=== PATIENT | male | born 1975 | race Caucasian/White ===

== ENCOUNTER 2019-10-13 15:02 | Inpatient (IN) | payer BC, OTHER ==
[~2019-10-13] VITALS: Ht 190.5 cm; Wt 79.1 kg
[2019-10-13] MEDS ORDERED: SODIUM CHLORIDE FLUSH 10ML SYR IVF ONE (15:30)
--- NOTE | 2019-10-13 15:38 | NUR ---
BRADDISHER: PT TO LAB OFFICE FOR BLOOD DRAW, THEN TO GO TO ROOM.
--- NOTE | 2019-10-13 15:47 | NUR ---
HEAD LIBRARIAN: PT TO ROOM, GAIT STEADY.
[2019-10-13 16:12] LABS: ALANINE AMINOTRANSFERASE 7 U/L (12-78); ALBUMIN 2.6 g/dL (3.4-5.0); ANION GAP 7 mmol/L (5-15); CALCIUM 8.3 mg/dL (8.5-10.1); CHLORIDE 105 mmol/L (98-107); CREATININE 1.03 mg/dL (0.7-1.3)
[2019-10-13 16:18] LABS: ALKALINE PHOSPHATASE 83 U/L (45-117); BILIRUBIN,TOTAL 0.3 mg/dL (0.2-1.0); TOTAL PROTEIN 7.6 g/dL (6.4-8.2)
[2019-10-13 16:39] LABS: BASOPHILS # (AUTO) 0.02 x10^3/uL (0-0.1); BASOPHILS % (AUTO) 0 % (0-1); EOSINOPHILS # (AUTO) 0.08 x10^3/uL (0-0.4); EOSINOPHILS % (AUTO) 1 % (1-7); LYMPHOCYTES # (AUTO) 2.44 x10^3/uL (1-3.4); LYMPHOCYTES % (AUTO) 38 % (22-44); MD MORPH REVIEW ONLY; MEAN CORPUSCULAR HEMOGLOBIN 15.9 pg (27.5-34.5); MEAN CORPUSCULAR VOLUME 54.1 fL (81-97); MEAN PLATELET VOLUME 7.9 fL (7.4-10.4); MONOCYTES # (AUTO) 0.46 x10^3/uL (0.2-0.8); MONOCYTES % (AUTO) 7 % (2-9); NEUTROPHILS # (AUTO) 3.47 x10^3/uL (1.8-6.8); NEUTROPHILS % (AUTO) 54 % (42-75); PLATELET COUNT 429 x10^3/uL (130-400)
[2019-10-13 16:40] LABS: MEAN CORPUSCULAR HGB CONC 29.3 g/dL (33.2-36.2)
[2019-10-13 16:48] LABS: ANISOCYTOSIS 2+; MICROCYTOSIS 2+
[2019-10-13 16:50] LABS: HYPOCHROMIA 1+; OVALOCYTES 1+; TARGET CELLS 1+; TEAR DROPS 1+
[2019-10-13 16:52] LABS: <PLATELET ESTIMATE> INCREASED; <PLT MORPHOLOGY> NORMAL PLT MORPH
--- NOTE | 2019-10-13 16:52 | NUR ---
SEVERAL ATTEMPTS MADE FOR PIV,UNSUCCESSFUL. US GUIDED IV PLACED BY LISET FAIR, REDRAW OF PURPLE TOP COLLECTED/SENT TO LAB. CRITICAL H/H DOCUMENTED AND REPORTED TO PROVIDER. SED RATE CLOTTED. PT UPDATED ON POC. URINE CUP AT BS. VSS/UPDATED IN COMPUTER.
--- NOTE | 2019-10-13 16:52 | NUR ---
TASK RN: IV ESTABLISHED BY US. PURPLE CAP DRAWN AND SENT TO LAB
[2019-10-13] MEDS ORDERED: PHARMACOKINETIC CONSULTATION MC ONE ×2 (17:00→18:30)
[2019-10-13] MEDS ORDERED: VANCOMYCIN PER PHARMACY MC ONE (17:00)
[2019-10-13] MEDS ORDERED: VANCOMYCIN 1,600 MG in SODIUM CHLORIDE 0.9% 250 ML IV ONE (17:00)
--- NOTE | 2019-10-13 17:00 | NUR ---
MU BONILLA AND ADMITTING MD AT .
[2019-10-13] MEDS ORDERED: METH40TA3 PO (17:20)
--- NOTE | 2019-10-13 17:24 | NUR ---
ATTEMPT TO CALL REPORT, RN NOT AVAILABLE WILL CALL BACK.
[2019-10-13] MEDS ORDERED: ACETAMINOPHEN 325 MG TABLET PO PRN (17:30)
[2019-10-13] MEDS ORDERED: POLYETHYLENE GLYCOL 17 GM PACKET PO PRN (17:30)
[2019-10-13] MEDS ORDERED: ONDANSETRON ODT 4 MG PO PRN (17:30)
[2019-10-13] MEDS ORDERED: VANCOMYCIN PER PHARMACY MC PRN (17:30)
[2019-10-13] MEDS ORDERED: ONDANSETRON 2MG/ML, 2ML IVPush PRN (17:30)
[2019-10-13 18:12] LABS: HCT (SEDRATE) 22.8 % (39.2-51.8)
[2019-10-13] MEDS ORDERED: PHARMACOKINETIC MONITORING MC PRN (18:30)
[2019-10-13] MEDS: METHADONE 5 MG TABLET PO SCH ×2 (18:43→23:26)
[2019-10-13] MEDS: NICOTINE 14MG/24 HR PATCH.TD24 TD SCH (18:44)
[2019-10-13] MEDS: ENOXAPARIN 40 MG/0.4 ML SQ SCH (18:44)
[2019-10-13 19:01] VITALS: BP 124/70
[2019-10-13] MEDS ORDERED: MORPHINE SULFATE 4 MG/ML, 1ML IVPush PRN (20:00)
[2019-10-13 21:54] VITALS: BP 121/64
[2019-10-13 22:15] VITALS: BP 117/67
[2019-10-13 22:30] VITALS: BP 117/66
[2019-10-13 23:27] VITALS: BP 120/71
[2019-10-14 00:58] VITALS: BP 121/67
[2019-10-14 02:07] VITALS: BP 131/72
[2019-10-14 02:09] VITALS: BP 131/72
[2019-10-14] MEDS: VANCOMYCIN 1,500 MG in SODIUM CHLORIDE 0.9% 250 ML IV SCH ×2 (05:15→17:53)
[2019-10-14] MEDS: OMEPRAZOLE 20 MG CAPSULE.DR PO SCH (05:15)
[2019-10-14] MEDS: METHADONE 5 MG TABLET PO SCH ×4 (05:15→22:43)
[2019-10-14 05:55] LABS: ALBUMIN 2.4 g/dL (3.4-5.0); ANION GAP 5 mmol/L (5-15); CALCIUM 8.2 mg/dL (8.5-10.1); CHLORIDE 105 mmol/L (98-107)
[2019-10-14 05:59] LABS: % IRON SATURATION 8 % (20-55); ALANINE AMINOTRANSFERASE 11 U/L (12-78); ALKALINE PHOSPHATASE 75 U/L (45-117); BILIRUBIN,TOTAL 0.8 mg/dL (0.2-1.0); IRON LEVEL 23 mcg/dL (65-175); TOTAL IRON BINDING CAPACITY 301 mcg/dL (250-450); TOTAL PROTEIN 7.1 g/dL (6.4-8.2)
[2019-10-14 06:00] LABS: MEAN CORPUSCULAR HEMOGLOBIN 16.7 pg (27.5-34.5); MEAN CORPUSCULAR VOLUME 56.5 fL (81-97); MEAN PLATELET VOLUME 8.1 fL (7.4-10.4); PLATELET COUNT 415 x10^3/uL (130-400); RED BLOOD COUNT 4.56 x10^6/uL (4.38-5.82); RED CELL DISTRIBUTION WIDTH 20.8 % (9.4-14.8)
[2019-10-14 06:45] LABS: MD YES
[2019-10-14 06:46] LABS: MEAN CORPUSCULAR HGB CONC 29.5 g/dL (33.2-36.2)
[2019-10-14 06:48] LABS: ANISOCYTOSIS 2+; BASOS#(MANUAL) 0.05 x10^3/uL (0-0.1); BASOS% (MANUAL) 1 % (0-1); EOS#(MANUAL) 0.26 x10^3/uL (0.0-0.4); EOS% (MANUAL) 5 % (1-7); HYPOCHROMIA 1+; LYMPHS% (MANUAL) 48 % (22-44); MICROCYTOSIS 2+; MONOS#(MANUAL) 0.16 x10^3/uL (0.3-2.7); MONOS% (MANUAL) 3 % (2-9); SEG#(MANUAL) 2.24 x10^3/uL (1.8-6.8); SEGS% (MANUAL) 43 % (42-75)
[2019-10-14 06:49] LABS: <PLATELET ESTIMATE> INCREASED; <PLT MORPHOLOGY> NORMAL PLT MORPH; OVALOCYTES 1+; TARGET CELLS 1+; TEAR DROPS 1+
[2019-10-14 08:22] VITALS: BP 119/73
[2019-10-14] MEDS: SENNA/DOCUSATE TABLET PO SCH (09:34)
[2019-10-14] MEDS: IRON SUCROSE COMPLEX 100MG/5ML IV SCH (11:45)
[2019-10-14 12:57] LABS: AMPHETAMINE SCREEN, URINE Positive (Negative); BARBITURATE SCREEN, URINE Negative (Negative); BENZODIAZEPINE SCREEN, URINE Positive (Negative); CANNABINOID SCREEN, URINE Negative (Negative); COCAINE SCREEN, URINE Negative (Negative); METHADONE SCREEN, URINE Positive (Negative); OPIATE SCREEN, URINE Positive (Negative)
[2019-10-14] MEDS ORDERED: GADOTERATE 10 MMOL/20 ML SYR ONE (13:12)
[2019-10-14 14:56] VITALS: BP 134/84
[2019-10-14 16:47] LABS: CULTURE INDICATED? NO; MICROSCOPIC NOT IND
[2019-10-14] MEDS: NICOTINE 14MG/24 HR PATCH.TD24 TD SCH (17:30)
[2019-10-14] MEDS: ENOXAPARIN 40 MG/0.4 ML SQ SCH (17:54)
[2019-10-14 19:39] VITALS: BP 135/81
[2019-10-14] MEDS ORDERED: METHADONE 10 MG TABLET ONE (22:36)
[2019-10-15 01:13] VITALS: BP 119/78
[2019-10-15 05:05] LABS: ALANINE AMINOTRANSFERASE 9 U/L (12-78); ALBUMIN 2.4 g/dL (3.4-5.0); ANION GAP 7 mmol/L (5-15); CALCIUM 8.2 mg/dL (8.5-10.1); CHLORIDE 106 mmol/L (98-107); CREATININE 0.85 mg/dL (0.7-1.3)
[2019-10-15 05:07] LABS: ALKALINE PHOSPHATASE 76 U/L (45-117); BILIRUBIN,TOTAL 0.3 mg/dL (0.2-1.0); TOTAL PROTEIN 6.9 g/dL (6.4-8.2); VANCOMYCIN,TROUGH 15.4 mcg/mL (5.0-10.0)
[2019-10-15] MEDS: METHADONE 5 MG TABLET PO SCH ×3 (05:19→18:28)
[2019-10-15] MEDS: OMEPRAZOLE 20 MG CAPSULE.DR PO SCH (05:19)
[2019-10-15] MEDS: VANCOMYCIN 1,500 MG in SODIUM CHLORIDE 0.9% 250 ML IV SCH ×2 (05:20→18:00)
[2019-10-15] MEDS: SENNA/DOCUSATE TABLET PO SCH (08:16)
[2019-10-15] MEDS: IRON SUCROSE COMPLEX 100MG/5ML IV SCH (08:17)
[2019-10-15 08:34] VITALS: BP 130/76
[2019-10-15 09:38] LABS: MEAN CORPUSCULAR HEMOGLOBIN 16.8 pg (27.5-34.5); MEAN CORPUSCULAR VOLUME 57.2 fL (81-97); MEAN PLATELET VOLUME 7.8 fL (7.4-10.4); PLATELET COUNT 448 x10^3/uL (130-400); RED BLOOD COUNT 4.99 x10^6/uL (4.38-5.82); RED CELL DISTRIBUTION WIDTH 21.8 % (9.4-14.8)
[2019-10-15 10:00] LABS: BASOPHILS # (AUTO) 0.06 x10^3/uL (0-0.1); BASOPHILS % (AUTO) 1 % (0-1); EOSINOPHILS # (AUTO) 0.19 x10^3/uL (0-0.4); EOSINOPHILS % (AUTO) 3 % (1-7); LYMPHOCYTES # (AUTO) 2.27 x10^3/uL (1-3.4); LYMPHOCYTES % (AUTO) 36 % (22-44); MD SCAN; MEAN CORPUSCULAR HGB CONC 29.3 g/dL (33.2-36.2); MONOCYTES # (AUTO) 0.39 x10^3/uL (0.2-0.8); MONOCYTES % (AUTO) 6 % (2-9); NEUTROPHILS # (AUTO) 3.48 x10^3/uL (1.8-6.8); NEUTROPHILS % (AUTO) 54 % (42-75)
[2019-10-15] MEDS: AMPICILLIN/SULBACTAM 3 GM in SODIUM CHLORIDE 0.9% 100 ML IV SCH ×2 (11:43→18:00)
[2019-10-15 13:37] VITALS: BP 113/66
[2019-10-15] MEDS: NICOTINE 14MG/24 HR PATCH.TD24 TD SCH (17:30)
[2019-10-15] MEDS: ENOXAPARIN 40 MG/0.4 ML SQ SCH (17:30)
[2019-10-15 21:39] VITALS: BP 103/71
[2019-10-16] MEDS: AMPICILLIN/SULBACTAM 3 GM in SODIUM CHLORIDE 0.9% 100 ML IV SCH ×5 (00:13→23:28)
[2019-10-16] MEDS: METHADONE 5 MG TABLET PO SCH ×5 (00:13→23:28)
[2019-10-16 03:45] VITALS: BP 118/64
[2019-10-16 04:40] LABS: MEAN CORPUSCULAR HEMOGLOBIN 16.8 pg (27.5-34.5); MEAN CORPUSCULAR VOLUME 56.7 fL (81-97); MEAN PLATELET VOLUME 7.6 fL (7.4-10.4); PLATELET COUNT 386 x10^3/uL (130-400); RED BLOOD COUNT 3.96 x10^6/uL (4.38-5.82); RED CELL DISTRIBUTION WIDTH 20.5 % (9.4-14.8)
[2019-10-16 04:41] LABS: MEAN CORPUSCULAR HGB CONC 29.7 g/dL (33.2-36.2)
[2019-10-16 04:52] LABS: ANION GAP 3 mmol/L (5-15); CALCIUM 8.2 mg/dL (8.5-10.1); CHLORIDE 104 mmol/L (98-107)
[2019-10-16 04:58] LABS: BASOPHILS % (AUTO) 0 % (0-1); EOSINOPHILS # (AUTO) 0.25 x10^3/uL (0-0.4); EOSINOPHILS % (AUTO) 4 % (1-7); LYMPHOCYTES # (AUTO) 2.06 x10^3/uL (1-3.4); LYMPHOCYTES % (AUTO) 36 % (22-44); MD SCAN; MONOCYTES # (AUTO) 0.37 x10^3/uL (0.2-0.8); MONOCYTES % (AUTO) 6 % (2-9); NEUTROPHILS # (AUTO) 3.09 x10^3/uL (1.8-6.8); NEUTROPHILS % (AUTO) 54 % (42-75)
[2019-10-16] MEDS: VANCOMYCIN 1,500 MG in SODIUM CHLORIDE 0.9% 250 ML IV SCH ×2 (06:34→17:53)
[2019-10-16] MEDS: OMEPRAZOLE 20 MG CAPSULE.DR PO SCH (06:34)
[2019-10-16 07:47] VITALS: BP 110/69
[2019-10-16] MEDS: SENNA/DOCUSATE TABLET PO SCH (08:55)
[2019-10-16] MEDS: IRON SUCROSE COMPLEX 100MG/5ML IV SCH (08:56)
[2019-10-16 12:39] VITALS: BP 115/70
[2019-10-16] MEDS ORDERED: HYDROcodone/APAP 5/325 TABLET PO PRN (14:00)
[2019-10-16] MEDS: NICOTINE 14MG/24 HR PATCH.TD24 TD SCH (17:30)
[2019-10-16] MEDS: ENOXAPARIN 40 MG/0.4 ML SQ SCH (17:53)
[2019-10-16 21:00] LABS: AMPHETAMINE SCREEN, URINE Positive (Negative); BARBITURATE SCREEN, URINE Negative (Negative); BENZODIAZEPINE SCREEN, URINE Negative (Negative); CANNABINOID SCREEN, URINE Negative (Negative); COCAINE SCREEN, URINE Negative (Negative); METHADONE SCREEN, URINE Positive (Negative); OPIATE SCREEN, URINE Positive (Negative)
[2019-10-17 00:14] VITALS: BP 134/79
[2019-10-17] MEDS: AMPICILLIN/SULBACTAM 3 GM in SODIUM CHLORIDE 0.9% 100 ML IV SCH ×3 (05:40→17:39)
[2019-10-17] MEDS: METHADONE 5 MG TABLET PO SCH ×3 (05:40→18:17)
[2019-10-17] MEDS: OMEPRAZOLE 20 MG CAPSULE.DR PO SCH (05:40)
[2019-10-17 06:07] LABS: ALBUMIN 2.5 g/dL (3.4-5.0); ANION GAP 7 mmol/L (5-15); CALCIUM 8.7 mg/dL (8.5-10.1); CHLORIDE 103 mmol/L (98-107)
[2019-10-17 06:17] LABS: ALANINE AMINOTRANSFERASE 9 U/L (12-78); ALKALINE PHOSPHATASE 79 U/L (45-117); BILIRUBIN,TOTAL 0.3 mg/dL (0.2-1.0); TOTAL PROTEIN 7.5 g/dL (6.4-8.2)
[2019-10-17 06:20] LABS: MEAN CORPUSCULAR VOLUME 57.4 fL (81-97); PLATELET COUNT 451 x10^3/uL (130-400); RED BLOOD COUNT 4.49 x10^6/uL (4.38-5.82); RED CELL DISTRIBUTION WIDTH 20.5 % (9.4-14.8)
[2019-10-17 06:25] LABS: MEAN CORPUSCULAR HGB CONC 29.6 g/dL (33.2-36.2)
[2019-10-17] MEDS: VANCOMYCIN 1,500 MG in SODIUM CHLORIDE 0.9% 250 ML IV SCH ×2 (06:27→18:16)
[2019-10-17 06:40] LABS: ANISOCYTOSIS 2+; BASOPHILS % (AUTO) 0 % (0-1); EOSINOPHILS # (AUTO) 0.17 x10^3/uL (0-0.4); EOSINOPHILS % (AUTO) 2 % (1-7); LYMPHOCYTES % (AUTO) 23 % (22-44); MD MORPH REVIEW ONLY; MICROCYTOSIS 2+; MONOCYTES # (AUTO) 0.47 x10^3/uL (0.2-0.8); MONOCYTES % (AUTO) 6 % (2-9); NEUTROPHILS # (AUTO) 5.46 x10^3/uL (1.8-6.8); NEUTROPHILS % (AUTO) 69 % (42-75)
[2019-10-17 06:41] LABS: HYPOCHROMIA 1+; OVALOCYTES 1+; POLYCHROMASIA 1+; TEAR DROPS 1+
[2019-10-17 06:42] LABS: <PLATELET ESTIMATE> INCREASED; <PLT MORPHOLOGY> NORMAL PLT MORPH
[2019-10-17 07:42] VITALS: BP 144/77
[2019-10-17] MEDS: SENNA/DOCUSATE TABLET PO SCH (08:40)
[2019-10-17 13:17] VITALS: BP 126/79
[2019-10-17] MEDS: ENOXAPARIN 40 MG/0.4 ML SQ SCH (17:38)
[2019-10-17] MEDS: NICOTINE 14MG/24 HR PATCH.TD24 TD SCH (17:39)
[2019-10-17 21:11] VITALS: BP 143/76
[2019-10-18] VITALS (8 sets, daily range): BP systolic 111–133; BP diastolic 68–78
[2019-10-18] MEDS: AMPICILLIN/SULBACTAM 3 GM in SODIUM CHLORIDE 0.9% 100 ML IV SCH ×2 (00:19→05:13)
[2019-10-18] MEDS: METHADONE 5 MG TABLET PO SCH ×4 (00:20→17:48)
[2019-10-18 05:49] LABS: ANION GAP 7 mmol/L (5-15); CALCIUM 8.1 mg/dL (8.5-10.1); CHLORIDE 102 mmol/L (98-107)
[2019-10-18 05:50] LABS: CREATININE 0.91 mg/dL (0.7-1.3)
[2019-10-18] MEDS: VANCOMYCIN 1,500 MG in SODIUM CHLORIDE 0.9% 250 ML IV SCH (06:05)
[2019-10-18] MEDS: OMEPRAZOLE 20 MG CAPSULE.DR PO SCH (06:06)
[2019-10-18 06:13] LABS: MEAN CORPUSCULAR VOLUME 57.8 fL (81-97); MEAN PLATELET VOLUME 7.9 fL (7.4-10.4); PLATELET COUNT 395 x10^3/uL (130-400); RED BLOOD COUNT 4.04 x10^6/uL (4.38-5.82)
[2019-10-18 06:17] LABS: MEAN CORPUSCULAR HGB CONC 29.4 g/dL (33.2-36.2)
[2019-10-18 06:33] LABS: BASOPHILS # (AUTO) 0.09 x10^3/uL (0-0.1); BASOPHILS % (AUTO) 1 % (0-1); EOSINOPHILS # (AUTO) 0.22 x10^3/uL (0-0.4); EOSINOPHILS % (AUTO) 4 % (1-7); LYMPHOCYTES # (AUTO) 1.71 x10^3/uL (1-3.4); LYMPHOCYTES % (AUTO) 28 % (22-44); MD SCAN; MONOCYTES # (AUTO) 0.34 x10^3/uL (0.2-0.8); MONOCYTES % (AUTO) 6 % (2-9); NEUTROPHILS # (AUTO) 3.78 x10^3/uL (1.8-6.8); NEUTROPHILS % (AUTO) 62 % (42-75)
[2019-10-18] MEDS: SENNA/DOCUSATE TABLET PO SCH (08:52)
[2019-10-18] MEDS: PIPERACILLIN/TAZO/PMX 3.375GM 50 ML IV SCH ×2 (11:12→15:25)
[2019-10-18] MEDS: NICOTINE 14MG/24 HR PATCH.TD24 TD SCH (17:30)
[2019-10-18] MEDS: ENOXAPARIN 40 MG/0.4 ML SQ SCH (17:48)
[2019-10-19] MEDS: METHADONE 5 MG TABLET PO SCH ×5 (00:24→23:46)
[2019-10-19 00:26] VITALS: BP 133/78
[2019-10-19] MEDS: PIPERACILLIN/TAZO/PMX 3.375GM 50 ML IV SCH ×5 (00:49→23:46)
[2019-10-19 00:51] VITALS: BP 122/70
[2019-10-19 00:55] VITALS: BP 122/70
[2019-10-19] MEDS: OMEPRAZOLE 20 MG CAPSULE.DR PO SCH (06:25)
[2019-10-19] MEDS: SENNA/DOCUSATE TABLET PO SCH (07:59)
[2019-10-19] MEDS ORDERED: HYDROmorphone 2 MG/ML, 1ML ONE (11:21)
[2019-10-19 11:29] LABS: AMPHETAMINE SCREEN, URINE Positive (Negative); BARBITURATE SCREEN, URINE Negative (Negative); BENZODIAZEPINE SCREEN, URINE Negative (Negative); CANNABINOID SCREEN, URINE Negative (Negative); COCAINE SCREEN, URINE Negative (Negative); METHADONE SCREEN, URINE Positive (Negative); OPIATE SCREEN, URINE Positive (Negative)
[2019-10-19] MEDS ORDERED: HYDROmorphone 2 MG/ML, 1ML IV PRN (11:30)
[2019-10-19 12:34] LABS: BASOPHILS # (AUTO) 0.09 x10^3/uL (0-0.1); BASOPHILS % (AUTO) 1 % (0-1); EOSINOPHILS # (AUTO) 0.25 x10^3/uL (0-0.4); EOSINOPHILS % (AUTO) 3 % (1-7); LYMPHOCYTES % (AUTO) 21 % (22-44); MD MORPH REVIEW ONLY; MEAN CORPUSCULAR HEMOGLOBIN 18.2 pg (27.5-34.5); MEAN CORPUSCULAR VOLUME 60.9 fL (81-97); MEAN PLATELET VOLUME 7.2 fL (7.4-10.4); MONOCYTES # (AUTO) 0.34 x10^3/uL (0.2-0.8); MONOCYTES % (AUTO) 4 % (2-9); NEUTROPHILS # (AUTO) 5.48 x10^3/uL (1.8-6.8); NEUTROPHILS % (AUTO) 71 % (42-75); PLATELET COUNT 445 x10^3/uL (130-400); RED BLOOD COUNT 4.65 x10^6/uL (4.38-5.82); RED CELL DISTRIBUTION WIDTH 33.9 % (9.4-14.8)
[2019-10-19 12:45] LABS: MEAN CORPUSCULAR HGB CONC 29.8 g/dL (33.2-36.2)
[2019-10-19 12:46] LABS: <PLATELET ESTIMATE> INCREASED; <PLT MORPHOLOGY> NORMAL PLT MORPH; ANISOCYTOSIS 2+; HYPOCHROMIA 2+; MICROCYTOSIS 2+; OVALOCYTES 1+
[2019-10-19 16:13] VITALS: BP 118/72
[2019-10-19] MEDS: NICOTINE 14MG/24 HR PATCH.TD24 TD SCH (17:30)
[2019-10-19] MEDS: ENOXAPARIN 40 MG/0.4 ML SQ SCH (17:36)
[2019-10-19 18:51] VITALS: BP 115/71
[2019-10-19] MEDS ORDERED: METHADONE 10 MG TABLET ONE (23:43)
[2019-10-20 00:56] VITALS: BP 121/72
[2019-10-20] MEDS: METHADONE 5 MG TABLET PO SCH ×3 (05:51→20:05)
[2019-10-20] MEDS: OMEPRAZOLE 20 MG CAPSULE.DR PO SCH (05:51)
[2019-10-20] MEDS: PIPERACILLIN/TAZO/PMX 3.375GM 50 ML IV SCH ×3 (06:45→20:05)
[2019-10-20] MEDS: SENNA/DOCUSATE TABLET PO SCH (09:00)
[2019-10-20 09:43] VITALS: BP 134/81
[2019-10-20 15:58] VITALS: BP 127/83
[2019-10-20] MEDS: ENOXAPARIN 40 MG/0.4 ML SQ SCH (17:23)
[2019-10-20] MEDS: NICOTINE 14MG/24 HR PATCH.TD24 TD SCH (17:25)
[2019-10-20 19:43] VITALS: BP 147/83
[2019-10-21 01:30] VITALS: BP 120/76
[2019-10-21] MEDS: PIPERACILLIN/TAZO/PMX 3.375GM 50 ML IV SCH ×4 (02:10→21:20)
[2019-10-21] MEDS: METHADONE 5 MG TABLET PO SCH ×4 (02:10→21:20)
[2019-10-21] MEDS: OMEPRAZOLE 20 MG CAPSULE.DR PO SCH (05:51)
[2019-10-21] MEDS: SENNA/DOCUSATE TABLET PO SCH (08:17)
[2019-10-21 09:00] VITALS: BP 113/68
[2019-10-21 14:00] VITALS: BP 133/75
[2019-10-21] MEDS ORDERED: METHADONE 10 MG TABLET ONE (15:03)
[2019-10-21] MEDS: ENOXAPARIN 40 MG/0.4 ML SQ SCH (18:28)
[2019-10-21] MEDS: NICOTINE 14MG/24 HR PATCH.TD24 TD SCH (18:29)
[2019-10-21 20:56] VITALS: BP 125/72
[2019-10-22 01:44] VITALS: BP 131/81
[2019-10-22] MEDS: PIPERACILLIN/TAZO/PMX 3.375GM 50 ML IV SCH ×4 (02:44→22:08)
[2019-10-22] MEDS: METHADONE 5 MG TABLET PO SCH ×4 (02:44→22:08)
[2019-10-22 03:14] LABS: ALBUMIN 2.5 g/dL (3.4-5.0); ANION GAP 6 mmol/L (5-15); CALCIUM 8.7 mg/dL (8.5-10.1); CHLORIDE 102 mmol/L (98-107); CREATININE 1.21 mg/dL (0.7-1.3); MEAN CORPUSCULAR HEMOGLOBIN 18.1 pg (27.5-34.5); MEAN CORPUSCULAR VOLUME 60.7 fL (81-97); MEAN PLATELET VOLUME 7.9 fL (7.4-10.4); PLATELET COUNT 461 x10^3/uL (130-400); RED BLOOD COUNT 5.24 x10^6/uL (4.38-5.82); RED CELL DISTRIBUTION WIDTH 33.7 % (9.4-14.8)
[2019-10-22 03:44] LABS: MEAN CORPUSCULAR HGB CONC 29.8 g/dL (33.2-36.2)
[2019-10-22 03:52] LABS: BASOPHILS # (AUTO) 0.02 x10^3/uL (0-0.1); BASOPHILS % (AUTO) 0 % (0-1); EOSINOPHILS # (AUTO) 0.29 x10^3/uL (0-0.4); EOSINOPHILS % (AUTO) 5 % (1-7); LYMPHOCYTES # (AUTO) 1.86 x10^3/uL (1-3.4); LYMPHOCYTES % (AUTO) 31 % (22-44); MD SCAN; MONOCYTES # (AUTO) 0.22 x10^3/uL (0.2-0.8); MONOCYTES % (AUTO) 4 % (2-9); NEUTROPHILS # (AUTO) 3.67 x10^3/uL (1.8-6.8); NEUTROPHILS % (AUTO) 61 % (42-75)
[2019-10-22] MEDS: OMEPRAZOLE 20 MG CAPSULE.DR PO SCH (06:14)
[2019-10-22 08:36] VITALS: BP 136/82
[2019-10-22] MEDS: SENNA/DOCUSATE TABLET PO SCH (09:00)
[2019-10-22] MEDS ORDERED: METHADONE 10 MG TABLET ONE (10:05)
[2019-10-22 14:29] VITALS: BP 123/80
[2019-10-22] MEDS: NICOTINE 14MG/24 HR PATCH.TD24 TD SCH (17:10)
[2019-10-22] MEDS: ENOXAPARIN 40 MG/0.4 ML SQ SCH (17:10)
[2019-10-22 20:00] VITALS: BP 123/82
[2019-10-23 02:00] VITALS: BP 128/78
[2019-10-23] MEDS: METHADONE 5 MG TABLET PO SCH ×4 (03:39→21:25)
[2019-10-23] MEDS: PIPERACILLIN/TAZO/PMX 3.375GM 50 ML IV SCH ×4 (03:39→21:25)
[2019-10-23] MEDS: OMEPRAZOLE 20 MG CAPSULE.DR PO SCH (06:00)
[2019-10-23] MEDS: SENNA/DOCUSATE TABLET PO SCH (09:00)
[2019-10-23 10:06] VITALS: BP 126/74
[2019-10-23] MEDS: NICOTINE 14MG/24 HR PATCH.TD24 TD SCH (16:23)
[2019-10-23] MEDS: ENOXAPARIN 40 MG/0.4 ML SQ SCH (16:23)
[2019-10-23 17:14] VITALS: BP 127/79
[2019-10-23 20:30] VITALS: BP 135/69
[2019-10-24 02:13] VITALS: BP 144/84
[2019-10-24] MEDS: PIPERACILLIN/TAZO/PMX 3.375GM 50 ML IV SCH ×4 (03:50→23:00)
[2019-10-24] MEDS: METHADONE 5 MG TABLET PO SCH ×4 (03:51→23:01)
[2019-10-24 04:37] LABS: HCT (SEDRATE) 32.2 % (39.2-51.8)
[2019-10-24 04:38] LABS: MEAN CORPUSCULAR HEMOGLOBIN 18.2 pg (27.5-34.5); MEAN CORPUSCULAR VOLUME 61.9 fL (81-97); MEAN PLATELET VOLUME 7.8 fL (7.4-10.4); PLATELET COUNT 434 x10^3/uL (130-400); RED CELL DISTRIBUTION WIDTH 33.9 % (9.4-14.8)
[2019-10-24 04:39] LABS: MEAN CORPUSCULAR HGB CONC 29.3 g/dL (33.2-36.2)
[2019-10-24 04:43] LABS: ALBUMIN 2.8 g/dL (3.4-5.0); ANION GAP 5 mmol/L (5-15); CHLORIDE 103 mmol/L (98-107)
[2019-10-24 04:54] LABS: ALANINE AMINOTRANSFERASE 21 U/L (12-78); ALKALINE PHOSPHATASE 109 U/L (45-117); BILIRUBIN,TOTAL 0.3 mg/dL (0.2-1.0); CREATININE 0.99 mg/dL (0.7-1.3); TOTAL PROTEIN 7.7 g/dL (6.4-8.2)
[2019-10-24] MEDS: OMEPRAZOLE 20 MG CAPSULE.DR PO SCH (05:21)
[2019-10-24 05:41] LABS: BASOPHILS # (AUTO) 0.04 x10^3/uL (0-0.1); BASOPHILS % (AUTO) 1 % (0-1); EOSINOPHILS # (AUTO) 0.22 x10^3/uL (0-0.4); EOSINOPHILS % (AUTO) 3 % (1-7); LYMPHOCYTES % (AUTO) 31 % (22-44); MD SCAN; MONOCYTES # (AUTO) 0.37 x10^3/uL (0.2-0.8); MONOCYTES % (AUTO) 6 % (2-9); NEUTROPHILS % (AUTO) 59 % (42-75)
[2019-10-24 07:35] VITALS: BP 126/70
[2019-10-24] MEDS: SENNA/DOCUSATE TABLET PO SCH (09:00)
[2019-10-24] MEDS: ENOXAPARIN 40 MG/0.4 ML SQ SCH (17:08)
[2019-10-24] MEDS: NICOTINE 14MG/24 HR PATCH.TD24 TD SCH (17:08)
[2019-10-24 19:00] VITALS: BP 119/68
[2019-10-25 02:23] VITALS: BP 132/78
[2019-10-25] MEDS: PIPERACILLIN/TAZO/PMX 3.375GM 50 ML IV SCH ×2 (05:06→11:58)
[2019-10-25] MEDS: METHADONE 5 MG TABLET PO SCH ×3 (05:06→16:58)
[2019-10-25] MEDS: OMEPRAZOLE 20 MG CAPSULE.DR PO SCH (05:06)
[2019-10-25 06:55] VITALS: BP 117/68
[2019-10-25] MEDS: SENNA/DOCUSATE TABLET PO SCH (07:31)
[2019-10-25 12:14] VITALS: BP 127/74
[2019-10-25] MEDS ORDERED: FERR324T5 PO (15:35)
== END 2019-10-25 17:10 | DRG 552 ==
LOC: ED 17:11 → EDIP 17:25 → 3N 17:44
PROVIDERS: ADMIT Family Medicine; ATTEND Internal Medicine
PROC: 30233N1 Transfusion of Nonautologous Red Blood Cells into Peripheral Vein, Percutaneous Approach (ICD-10-PCS; 2019-10-13)
PROC: 02HV33Z Insertion of Infusion Device into Superior Vena Cava, Percutaneous Approach (ICD-10-PCS; principal; 2019-10-15)
PROC: B5181ZA Fluoroscopy of Superior Vena Cava using Low Osmolar Contrast, Guidance (ICD-10-PCS; 2019-10-15)
PROC: B548ZZA Ultrasonography of Superior Vena Cava, Guidance (ICD-10-PCS; 2019-10-15)
DX: M46.46 Discitis, unspecified, lumbar region (principal); M46.26 Osteomyelitis of vertebra, lumbar region; K21.9 Gastro-esophageal reflux disease without esophagitis; F11.10 Opioid abuse, uncomplicated; B18.2 Chronic viral hepatitis C; D50.0 Iron deficiency anemia secondary to blood loss (chronic); D47.3 Essential (hemorrhagic) thrombocythemia; B96.20 Unspecified Escherichia coli [E. coli] as the cause of diseases classified elsewhere; B95.2 Enterococcus as the cause of diseases classified elsewhere; F15.10 Other stimulant abuse, uncomplicated; Z79.01 Long term (current) use of anticoagulants; Z86.14 Personal history of Methicillin resistant Staphylococcus aureus infection; Z86.718 Personal history of other venous thrombosis and embolism; Z79.891 Long term (current) use of opiate analgesic; Z83.3 Family history of diabetes mellitus; Z79.899 Other long term (current) drug therapy
CPT/HCPCS: 36415; 36573; 70100; 80048; 80053; 80069; 80074; 80202; 80307; 81003; 82728; 83540; 83550; 83605; 83735; 85014; 85018; 85025; 85651; 86140; 86592; 86803; 86850; 86900; 86923; 87040; 87070; 87077; 87147; 87186; 87205; 87521; 87806; 93306; 99285; G0378; J0295; J1170; J1650; J1756; J2405; J2543; J3370; A9575; C1751; G0475; J2270; J7050; P9016

== ENCOUNTER 2020-01-11 13:42 | Outpatient (CLI) | payer BC ==
[~2020-01-11 13:42] MED LIST: FERR324T5 PO; METH40TA3 PO
[2020-01-17] MEDS ORDERED: METH40TA3 PO ×2 (21:43→23:28)
[2020-01-17] MEDS ORDERED: OMEP20TA62 PO (23:30)
== END 2020-01-11 23:59 | disposition home or self-care (01) ==
LOC: WOUND 13:42
PROVIDERS: ATTEND Internal Medicine
DX: T86.828 Other complications of skin graft (allograft) (autograft) (principal); L02.415 Cutaneous abscess of right lower limb; K21.9 Gastro-esophageal reflux disease without esophagitis; D63.8 Anemia in other chronic diseases classified elsewhere; M46.26 Osteomyelitis of vertebra, lumbar region; I10 Essential (primary) hypertension; F19.10 Other psychoactive substance abuse, uncomplicated; F15.90 Other stimulant use, unspecified, uncomplicated; F11.90 Opioid use, unspecified, uncomplicated; F17.210 Nicotine dependence, cigarettes, uncomplicated; Z86.718 Personal history of other venous thrombosis and embolism; Z86.14 Personal history of Methicillin resistant Staphylococcus aureus infection; Y83.2 Surgical operation with anastomosis, bypass or graft as the cause of abnormal reaction of the patient, or of later complication, without mention of misadventure at the time of the procedure
CPT/HCPCS: 99205; 99215

== ENCOUNTER → 2020-01-27 | Outpatient (CLI) | payer BC ==
[~2020-01-27] MED LIST changes: +OMEP20TA62 PO
== END | disposition home or self-care (01) ==
LOC: WOUND 09:47
PROVIDERS: ATTEND Family Medicine
DX: T86.821 Skin graft (allograft) (autograft) failure (principal); L02.415 Cutaneous abscess of right lower limb; I10 Essential (primary) hypertension; K21.9 Gastro-esophageal reflux disease without esophagitis; D63.8 Anemia in other chronic diseases classified elsewhere; M46.26 Osteomyelitis of vertebra, lumbar region; F19.10 Other psychoactive substance abuse, uncomplicated; F15.90 Other stimulant use, unspecified, uncomplicated; F11.90 Opioid use, unspecified, uncomplicated; F17.210 Nicotine dependence, cigarettes, uncomplicated; Z86.718 Personal history of other venous thrombosis and embolism; Z86.14 Personal history of Methicillin resistant Staphylococcus aureus infection; Y83.2 Surgical operation with anastomosis, bypass or graft as the cause of abnormal reaction of the patient, or of later complication, without mention of misadventure at the time of the procedure
CPT/HCPCS: 11043; 11046

== ENCOUNTER 2020-02-08 09:15 | Outpatient (CLI) | payer BC | END 2020-02-08 23:59 | disposition home or self-care (01) | LOC: WOUND 09:15 | PROVIDERS: ATTEND Internal Medicine | DX: T86.821 Skin graft (allograft) (autograft) failure (principal); L02.415 Cutaneous abscess of right lower limb; I10 Essential (primary) hypertension; K21.9 Gastro-esophageal reflux disease without esophagitis; D63.8 Anemia in other chronic diseases classified elsewhere; M46.26 Osteomyelitis of vertebra, lumbar region; F19.10 Other psychoactive substance abuse, uncomplicated; F15.90 Other stimulant use, unspecified, uncomplicated; F11.90 Opioid use, unspecified, uncomplicated; F17.210 Nicotine dependence, cigarettes, uncomplicated; Z86.718 Personal history of other venous thrombosis and embolism; Z86.19 Personal history of other infectious and parasitic diseases; Z86.14 Personal history of Methicillin resistant Staphylococcus aureus infection; Y83.2 Surgical operation with anastomosis, bypass or graft as the cause of abnormal reaction of the patient, or of later complication, without mention of misadventure at the time of the procedure | CPT/HCPCS: 11043; 11046 ==

== ENCOUNTER 2020-05-11 17:56 | Emergency (ER) | payer BC ==
[~2020-05-11] VITALS: Ht 190.5 cm; Wt 82.0 kg
[2020-05-11 18:05] VITALS: BP 131/76
--- NOTE | 2020-05-11 18:13 | NUR ---
PT BIB [facility], IN POLICE CUSTODY DUE TO DRUG POSSESSION. 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 PT STATES WOUND HAS BEEN PRESENT OVER 2 YEARS. POSTERIOR EDGE IS SHELFING OVER WOUND BED, BASE OF BED JIANG, PINK, WET AND WEEPING. APPROX. 6-8" ROUND. PT HAS HAD SURGICAL DEBRIDEMENT, SPENT 3 MONTHS INPATIENT AT [facility] AND WAS DISCHARGED WITH A WOUND VAC SOME TIME AGO. PT WAS DISCHARGED AND NOW HAS HAD NO WOUND CARE OF ANY KIND FOR 3 WEEKS. PT MUSCLES HEROIN, AND USES METHODONE AMONG OTHER DRUGS. BS 122. [facility] AT BEDSIDE. 20G IV IN LAC.
--- NOTE | 2020-05-11 18:51 | NUR ---
LAB AT BEDSIDE FOR BLOOD DRAW.
[2020-05-11 18:55] LABS: BASOPHILS % (AUTO) 0 % (0-1); EOSINOPHILS # (AUTO) 0.07 x10^3/uL (0-0.4); EOSINOPHILS % (AUTO) 1 % (1-7); LYMPHOCYTES # (AUTO) 0.88 x10^3/uL (1-3.4); LYMPHOCYTES % (AUTO) 14 % (22-44); MD NO; MEAN CORPUSCULAR HEMOGLOBIN 20.3 pg (27.5-34.5); MEAN CORPUSCULAR HGB CONC 30.7 g/dL (33.2-36.2); MONOCYTES % (AUTO) 5 % (2-9); NEUTROPHILS # (AUTO) 4.95 x10^3/uL (1.8-6.8); NEUTROPHILS % (AUTO) 80 % (42-75); PLATELET COUNT 304 x10^3/uL (130-400); RED BLOOD COUNT 5.14 x10^6/uL (4.38-5.82); RED CELL DISTRIBUTION WIDTH 17.7 % (9.4-14.8)
[2020-05-11 19:06] LABS: ANION GAP 6 mmol/L (5-15); CALCIUM 8.9 mg/dL (8.5-10.1); CHLORIDE 106 mmol/L (98-107); CREATININE 0.93 mg/dL (0.7-1.3)
--- NOTE | 2020-05-11 19:14 | NUR ---
PT DENIES ANY NEEDS OR CONCERNS, RESTING IN BED. POLICE CONTINUE AT BEDSIDE.
--- NOTE | 2020-05-11 19:55 | NUR ---
WOUND CLEANED WITH WOUND CLEANSER, DRESSED IN ABDS AND TRANSPORE TAPE. PT TOLERATED WITHOUT ISSUE. IV PULLED. WHEELCHAIR PROVIDED. PT DISCHARGED INTO [facility] CUSTODY.
== END 2020-05-11 19:57 | disposition home or self-care (01) ==
LOC: ED 18:11
DX: S70.911A Unspecified superficial injury of right hip, initial encounter (principal); L53.9 Erythematous condition, unspecified; Z86.14 Personal history of Methicillin resistant Staphylococcus aureus infection; X58.XXXA Exposure to other specified factors, initial encounter; Y93.89 Activity, other specified; Y92.89 Other specified places as the place of occurrence of the external cause; Y99.8 Other external cause status
CPT/HCPCS: 36415; 80048; 82040; 83605; 85025; 87040; 99283